=== PATIENT | male | born 1970 | race American Indian/Alaskan Native ===

== ENCOUNTER 2019-02-13 08:31 | Outpatient (CLI) | payer OTHER ==
--- NOTE | 2019-02-13 14:01 | Mammography Report ---
BILATERAL DIGITAL DIAGNOSTIC MAMMOGRAM with CAD and BILATERAL BREAST ULTRASOUND: 02/13/19 CLINICAL: 48-year-old male with left mastodynia. He describes pain at the nipple. COMPARISON:None. FINDINGS: The breasts are mostly fattywith very minimal left subareolar fibroglandular densities. Very subtle diffuse increased density of the left breast compared to the right particularly on the CC view and in the outer portion of the breast on the CC view. No mass, architectural distortion or suspicious calcifications. Ultrasound of the left breast (including all four quadrants and the retroareolar area) was performed and demonstrated normal fatty structures with no mass, cyst or shadowing. No skin thickening or edema. Ultrasound of the right breast (including all four quadrants and the retroareolar area) was performed and demonstrated a benign cyst at the edge of the areola at 3 o'clock. Measures 3 mm. Otherwise normal fatty structures. No solid mass or shadowing. IMPRESSION: Very mild left gynecomastia which may explain left breast pain. A benign 3 mm right breast cyst. BI-RADS CATEGORY: 2 -- Benign RECOMMENDATION: Clinical follow-up. COMMENT: Patient follow-up letters are generated by our [employer] application.
== END 2019-02-13 08:32 | disposition home or self-care (01) ==
LOC: MAMMO 08:31
PROVIDERS: ATTEND Adult Companion
DX: N63.14 Unspecified lump in the right breast, lower inner quadrant (principal)
CPT/HCPCS: 77066